=== PATIENT | male | born 1945 | race Caucasian/White ===

== ENCOUNTER → 2016-11-15 | Outpatient (CLI) | payer OTHER, MEDICARE | LOC: BHLMT 11:30 | PROVIDERS: ATTEND Internal Medicine Cardiovascular Disease | DX: I48.0 Paroxysmal atrial fibrillation (principal); I10 Essential (primary) hypertension; E78.5 Hyperlipidemia, unspecified; I71.00 Dissection of unspecified site of aorta; I25.10 Atherosclerotic heart disease of native coronary artery without angina pectoris | CPT/HCPCS: 93005-PO ==

== ENCOUNTER → 2016-11-29 | Outpatient (CLI) | payer OTHER, MEDICARE | LOC: BHLMT 09:00 | PROVIDERS: ATTEND Internal Medicine Cardiovascular Disease | DX: R07.9 Chest pain, unspecified (principal); E78.5 Hyperlipidemia, unspecified | CPT/HCPCS: 78452; 93017; A9500; J2785 ==

== ENCOUNTER → 2016-12-30 | Outpatient (CLI) | payer OTHER, MEDICARE | LOC: BHFA 13:00 | PROVIDERS: ATTEND Internal Medicine Cardiovascular Disease | DX: I71.00 Dissection of unspecified site of aorta (principal); I25.10 Atherosclerotic heart disease of native coronary artery without angina pectoris; I48.0 Paroxysmal atrial fibrillation ==

== ENCOUNTER → 2017-01-11 | Outpatient (CLI) | payer OTHER, MEDICARE | LOC: BHLMT 10:00 | PROVIDERS: ATTEND Internal Medicine Interventional Cardiology | DX: I48.91 Unspecified atrial fibrillation (principal); I25.10 Atherosclerotic heart disease of native coronary artery without angina pectoris | CPT/HCPCS: 93306-PO ==

== ENCOUNTER → 2017-02-24 | Outpatient (CLI) | payer OTHER, MEDICARE | LOC: BHFA 13:30 | PROVIDERS: ATTEND Internal Medicine Cardiovascular Disease | DX: I48.91 Unspecified atrial fibrillation (principal) ==

== ENCOUNTER → 2017-04-17 | Outpatient (CLI) | payer OTHER, MEDICARE ==
[~2017-04-17] MED LIST: IOPAMIDOL (ISOVUE 370) 100 ML BTL IV ONE
== END ==
LOC: FIMAGING 11:19
PROVIDERS: ATTEND Internal Medicine Cardiovascular Disease
DX: I71.2 Thoracic aortic aneurysm, without rupture (principal); I48.91 Unspecified atrial fibrillation; J43.2 Centrilobular emphysema
CPT/HCPCS: 75572; Q9967

== ENCOUNTER 2017-04-20 11:02 | Observation (INO) | payer OTHER, MEDICARE ==
[2017-04-20] MEDS ORDERED: NS 1,000 ML IV ONE (11:13)
--- NOTE | 2017-04-20 11:35 | CPEKG ---
Heart Rate: 64 RR Interval: 938 P-R Interval: 200 QRSD Interval: 86 QT Interval: 440 QTC Interval: 454 P [place]: 30 QRS [place]: -40 T Wave [place]: 20 EKG Severity - BORDERLINE ECG - EKG Impression: SINUS RHYTHM EKG Impression: PROBABLE LEFT ATRIAL ABNORMALITY EKG Impression: LEFT AXIS DEVIATION EKG Impression: BORDERLINE INFERIOR Q WAVES Electronically Signed By: Edmund Beckham 20-Apr-2017 12:46:49
[2017-04-20 11:53] LABS: % IMMATURE GRANULYOCYTES 1.3 % (0.0-1.1); ABSOLUTE IMMATURE GRANULOCYTES 0.12 10^3/uL (0.00-0.10); ADD DIFF? NO; ADD MORPH? NO; ADD SCAN? NO; ATYPICAL LYMPHOCYTE FLAG 0 (0-99); FRAGMENT RBC FLAG 0 (0-99); HEMATOCRIT 46.5 % (40.0-51.0); HEMOGLOBIN 15.6 g/dL (13.7-17.5); LEFT SHIFT FLG 0 (0-99); LIPEMIA HEMOLYSIS FLAG 80 (0-99); MEAN CELL HEMOGLOBIN 32.8 pg (27.9-34.1); MEAN CELL HEMOGLOBIN CONCENTR. 33.5 g/dL (32.4-36.7); MEAN CELL VOLUME 97.9 fL (81.5-99.8); MEAN PLATELET VOLUME 11.5 fL (8.7-11.7); PLATELET CLUMPS FLAG 0 (0-99); PLATELET COUNT 163 10^3/uL (150-400); RED BLOOD CELL COUNT 4.75 10^6/uL (4.40-6.38); RED CELL DISTRIBUTION WIDTH 14.7 % (11.5-15.2)
[2017-04-20 12:04] LABS: ANION GAP 11 mEq/L (8-16); CALCIUM 9.1 mg/dL (8.5-10.4); CARBON DIOXIDE 19 mEq/l (22-31); CHLORIDE 112 mEq/L (97-110); CREATININE 1.7 mg/dL (0.7-1.3); GLOMERULAR FILTRATION RATE 40; GLUCOSE 98 mg/dL (70-100); INR 1.17 (0.83-1.16); MAGNESIUM 2.1 mg/dL (1.6-2.3); POTASSIUM 4.7 mEq/L (3.5-5.2); PROTIME(PATIENT) 14.9 SEC (12.0-15.0); SODIUM 142 mEq/L (134-144)
[2017-04-20] MEDS ORDERED: BUPIVACAINE 0.5% 30 ML SDV ONE (12:18)
[2017-04-20] MEDS ORDERED: HEPARIN/DEXTROSE 25,000 UNIT/500 ML BAG ONE (12:18)
[2017-04-20] MEDS ORDERED: HEPARIN 10,000 UNIT/10 ML MDV ONE (12:18)
[2017-04-20] MEDS ORDERED: LIDOCAINE 1% 300 MG/30 ML SDV ONE (12:18)
--- NOTE | 2017-04-20 13:08 | PDANEPAE ---
ANE History of Present Illness 71 yo male with h/o paroxysmal A-fib and type B aortic aneurysm with dissection. ANE Past Medical History Past Medical History: No URI/fever x2 weeks. 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 PAF. aortic aneurysm with h/o dissection - Pulmonary History Hx Sleep Apnea: No Pulmonary History Comment: positive JERSON screen. on O2 now due to hypoxemia on admission - no known other pulmonary history, but pt has a significant smoking history - Renal History Hx Renal Disorders: Yes Renal History Comment: CKD - Liver History Hx Hepatic Disorders: No - GI History GERD: mild ANE Review of Systems Review of Systems: - Systems Constitutional: Reports: no symptoms Respiratory: Reports: shortness of breath ANE Patient History - Allergies Allergies/Adverse Reactions: No Known Allergies Allergy (Verified 04/14/17 18:59) - Home Medications Home medications: home medication list seen and reviewed Home Medications: Acetaminophen [Tylenol 325mg (*)] 325 mg PO Q4H PRN 04/14/17 [Last Taken Unknown ] Amiodarone HCl [Pacerone (*)] 200 mg PO DAILY 04/14/17 [Last Taken Unknown] Atenolol [Tenormin 25 mg (*)] 12.5 mg PO DAILY 04/14/17 [Last Taken Unknown] Lisinopril [Zestril 20 mg (*)] 20 mg PO BID 04/14/17 [Last Taken Unknown] Omeprazole 20 mg PO DAILY 04/14/17 [Last Taken Unknown] Warfarin Sodium [Warfarin Pharmacy To Dose] 1 each MISC AD 04/14/17 [Last Taken Unknown] amLODIPine BESYLATE [Norvasc 10 mg (*)] 10 mg PO DAILY 04/14/17 [Last Taken Unknown] - NPO status NPO Status: no food or drink >8 hours - Anes Hx Anes Hx: no prior problems - Smoking Hx Smoking Status: Current every day smoker - Family Anes Hx Family Anes Hx: neg - N/A ANE Labs/Vital Signs - Labs Result Diagrams: 04/20/17 11:40 04/20/17 11:40 - Labs - BMP Creatinine: 1.7 - Vital Signs Vital Signs: reviewed preoperatively; see RN documention for details Height: 183 cm Weight: 99.8 kg ANE Physical Exam - Airway Neck exam: FROM Mallampati Score: Class 2 Mouth exam: normal dental/mouth exam - Pulmonary Pulmonary: rhonchi (cleared somewhat with coughing, suspect some atelectasis superimposed on COPD) - Cardiovascular Cardiovascular: regular rate and rhythym - ASA Status ASA Status: IV ANE Anesthesia Plan Anesthesia Plan: general endotracheal anesthesia
--- NOTE | 2017-04-20 13:21 | PDGENHP ---
History & Physical Chief Complaint: Palpitations History of Present Illness: Pt with known COPD, CRI, who has aortopathy, descending aortic aneurysm of 6cm, has palpitation correlating with AF not resovled despite use of Amiodarone. Pt offered Mexilitene vs PVI. Wants to undergo PVI Pertinent Past, Social, Family History: Reviewed and as mentioned above Relevant Physical Exam: Normal physical exam with no significant rales rhonchi or rub. TIKA present Cardiorespiratory Assessment: Good AEBE./ No rales rhinchi rub. S1S2 regular No S3 TIKA noted.
[2017-04-20] MEDS ORDERED: PROPOFOL/EMULSION 500 MG/50 ML BOTTLE IV ONE (13:31)
[2017-04-20] MEDS ORDERED: fentaNYL 100 MCG/2 ML INJ ONE ×2 (13:31→15:55)
[2017-04-20] MEDS ORDERED: ROCURONIUM 50 MG/5 ML VIAL ONE (13:31)
[2017-04-20] MEDS ORDERED: DEXAMETHASONE 4 MG/ML VIAL ONE (13:31)
[2017-04-20] MEDS ORDERED: epHEDrine SULFATE 10 MG/ML SYR ONE ×2 (14:05→14:45)
[2017-04-20] MEDS ORDERED: VASOPRESSIN 20 UNIT/ML VIAL ONE (14:20)
[2017-04-20] MEDS ORDERED: ALBUTEROL 3 ML DEYVIAL ONE (14:58)
[2017-04-20 15:00] LABS: BASE EXCESS -5.8 mEq/L (-2.5-2.5); BICARBONATE 19 mEq/L (22-26); MEASURED OXYGEN SATURATION 95 % (92-95); PCO2 39 mmHg (34-38); PO2 88 mmHg (65-75); TCO2 21 mEq/L (23-27)
[2017-04-20] MEDS ORDERED: IPRATROPIUM/ALBUTEROL 3 ML DEYVIAL ONE (15:00)
[2017-04-20 15:01] LABS: P/F RATIO 88 RATIO
[2017-04-20 15:02] LABS: O2 CONCENTRATIION 100 % (0-100); PRESSURE SUPPORT 12
[2017-04-20] MEDS ORDERED: IOPAMIDOL (ISOVUE-300) 100 ML BTL ONE (15:20)
[2017-04-20] MEDS ORDERED: DESFLURANE 240 ML BOTTLE IH ONE (15:25)
[2017-04-20 16:03] LABS: BICARBONATE 19 mEq/L (22-26); MEASURED OXYGEN SATURATION 98 % (92-95); PCO2 39 mmHg (34-38); PO2 129 mmHg (65-75); TCO2 20 mEq/L (23-27)
[2017-04-20 16:14] LABS: O2 CONCENTRATIION 100 % (0-100); P/F RATIO 129 RATIO
[2017-04-20 16:15] LABS: PATIENT RATE 16; PRESSURE SUPPORT 8
[2017-04-20] MEDS ORDERED: SODIUM BICARBONATE 50 MEQ/50 ML SYR ONE (16:21)
[2017-04-20] MEDS ORDERED: PROTAMINE SULFATE 50 MG/5 ML VIAL IVP ONE (16:27)
[2017-04-20] MEDS ORDERED: ONDANSETRON 4 MG/2 ML VIAL IVP PRN ×2 (16:38→16:39)
[2017-04-20] MEDS ORDERED: OXYCODONE/APAP 5/325 TAB PO PRN (16:38)
[2017-04-20] MEDS ORDERED: ACETAMINOPHEN 325 MG TAB PO PRN ×2 (16:38→16:40)
[2017-04-20] MEDS ORDERED: fentaNYL 100 MCG/2 ML INJ IVP PRN (16:39)
[2017-04-20] MEDS ORDERED: NALOXONE HCL 0.4 MG/ML INJ IVP PRN (16:39)
[2017-04-20] MEDS ORDERED: IPRATROPIUM/ALBUTEROL 3 ML DEYVIAL IH PRN (16:40)
--- NOTE | 2017-04-20 17:03 | POSTANESTH ---
Post Anesthetic Evaluation Cardiovascular Status: Normal, Stable Respiratory Status: Normal, Stable Level of Consciousness/Mental Status: Can Participate in Eval, Mildly Sleepy, Arousable Pain Control: Adequate, Prn Tx Ordered Nausea/Vomiting Control: Adequate, Prn Tx Ordered Complications Possibly Related to Anesthesia: Other, See Comments (Pt had persistent hypotension probably secondary to hypovolemia/sympathetic blockade with GA. Treated with IVF and pressors. BP back to pre-op levels with end of anesthestic. Pt had severe COPD/bronchospasm during case that resolved with Duoned + volatile increase. No further hypoxia during case. No obvious sequelae. )
[2017-04-20 17:48] LABS: IONIZED CALCIUM 0.66 MMOL/L (1.19-1.37)
[2017-04-20 17:56] LABS: ANION GAP 16 mEq/L (8-16); CARBON DIOXIDE 16 mEq/l (22-31); CHLORIDE 118 mEq/L (97-110); CREATININE 1.1 mg/dL (0.7-1.3); GLOMERULAR FILTRATION RATE > 60; GLUCOSE 103 mg/dL (70-100); MAGNESIUM 1.1 mg/dL (1.6-2.3); POTASSIUM 3.1 mEq/L (3.5-5.2); SODIUM 150 mEq/L (134-144)
[2017-04-20 18:06] LABS: CALCIUM 5.5 mg/dL (8.5-10.4)
[2017-04-20] MEDS ORDERED: CALCIUM GLUCONATE 2 GM in D5W 50 ML IV ONE (18:30)
[2017-04-20] MEDS ORDERED: WARFARIN SODIUM 5 MG TAB PO ONE (19:00)
--- NOTE | 2017-04-20 19:41 | PDCONSULT ---
Visual Presentation Manager Note: Erwin Zamora Telehealth Note Demographics Consult Type Acute Stroke First Name Gabriel Last Name Fer Date of 1945 Age: 71 Gender Male Time of initial page (): 04/20/2017 19:25 Time of return call (): 04/20/2017 19:26 Time Ready to Initiate Telemed Consult ( Time): 04/20/2017 19:30 HPI Additional History (Free Text): 71yo man who presents with afib ablation done today. he then had left sided decreased vision. these symptoms started at around he time he awoke from his ablation at around 545PM. He went into the ablation at 130PM. [facility]-- Past Medical History: Diabetes Mellitus, LE cellulitis. Exam NIHSS Time (): 04/20/2017 19:33 LOC 1a: 0 = Alert; keenly responsive LOC 1b: 0 = Answers both questions correctly LOC Commands: 0 = Performs both tasks correctly Best Gaze: 0 = Normal Visual: 2 = Complete hemianopia Facial Palsy 0 = Normal symmetrical movements Motor Arm L: 0 = No drift; limb holds 90 (or 45) degrees for full 10 seconds Motor Arm R: 0 = No drift; limb holds 90 (or 45) degrees for full 10 seconds Motor Leg L: 0 = No drift; leg holds 30-degree position for full 5 seconds Motor Leg R: 0 = No drift; leg holds 30-degree position for full 5 seconds Limb Ataxia 0 = Absent Sensory: 0 = Normal; no sensory loss Best Language: 0 = No aphasia; normal Dysarthria: 0 = Normal Extinction + Inattention: 0 = No abnormality NIHSS: [address]: no bleed Assessment Assessment: Acute Ischemic Stroke, right CT TECH territory Plan Lytic/Intervention: NOT IV or IA candidate tPA Exclusion > 4.5 hr Target Blood Pressure: SBP < 220 Labs Comprehensive metabolic panel, ESR, HgbA1c, Lipid Panel, UDS Imaging MRA Head without, MRA Neck, MRI brain without Diagnostic test echocardiogram with bubble Therapy/Eval PT/OT Medication aspirin 81mg per day VTE Prophylaxis SCD, Heparin 5000 units subcutaneously q 12 hours Other LDL goal less than 70, permissive HTN, telemetry monitoring, I have discussed my recommendations with the referring provider Disposition continue admission
[2017-04-20] MEDS: LISINOPRIL 20 MG TAB PO SCH (20:03)
--- NOTE | 2017-04-20 20:10 | PDHOSCONS ---
Hospitalist Consult Hospitalist Consult: STROKE ALERT CALL FOR THIS PATIENT This patient had been in the EP lab earlier today with a cardiac ablation for atrial fibrillation. He has history of ongoing symptomatic atrial fibrillation unresponsive to antiarrhythmic medications. He also has a history of aortic disease with both ascending and descending aortic aneurysms, and some degree of renal failure. Dr. Kent performed the ablation today and there did not appear to be any complications during the procedure. However as the patient awakened from the procedure and the sedation he noticed a left hemianopia both eyes with a complete loss of vision in that portion of the field. On review of systems there are no other neurologic symptoms and no other visual symptoms, no ocular pain, no headache, no chest pain or palpitations, and no fever symptoms. He has never had symptoms like this before and has never had a stroke. The patient takes anticoagulant home with warfarin, had been on heparin here which was stopped prior to his procedure. He takes an aspirin. He is not diabetic. There has been no recent head injury he is aware of. He has no history of seizure The timing of his symptoms, the due to their presence upon awakening from anesthesia, has to go back at least until the onset of administration of sedation before his procedure. That puts him well past 3 hours and out of times own for being a candidate for tPA therapy. On examination the patient is mildly hypertensive, normal and regular pulse with sinus rhythm on monitor, respirations relaxed normal for temperature The patient is wide awake alert attentive talkative oriented. Her participates normal examination. There is no focal weakness or cranial nerve abnormality. His speech is normal all regards He does demonstrate left hemianopia with both eyes. The patient was taken stat to the CT scanner where a noncontrast scan shows no evidence of bleeding, some nonspecific white matter abnormalities with only real in noted finding He was examined by the [facility] senior product consultant by telemedicine. DIAGNOSIS: ACUTE ISCHEMIC RIGHT OCCIPITAL STROKE IS MOST LIKELY On reviewing his situation he is not a candidate for tPA due to the timing of onset of symptoms which is unknown going back to the time of administration of sedation today. Therefore the plan at this time will be to given aspirin, to go through the standard stroke assessment for finding any treatable or Proventil causes. Also have him seen by therapists and consider his needs at the time of discharge for ongoing therapy or other help. An MRI of the brain will be done to assess for skin cachorro stroke or other possible causes of the syndrome. I have reviewed the case in detail today with Dr. rosalina Morelos and Dr Hernandez of [facility] neurology consulting
[2017-04-20] MEDS: ASPIRIN EC 81 MG TAB PO SCH (20:36)
[2017-04-20] MEDS ORDERED: HEPARIN/DEXTROSE 500 ML IV SCH (22:42)
[2017-04-20] MEDS ORDERED: HEPARIN 10,000 UNIT/10 ML MDV IVP PRN (22:42)
[2017-04-21] MEDS ORDERED: ENOXAPARIN 100 MG/ML SYR SC ONE (01:30)
[2017-04-21] MEDS ORDERED: ENOXAPARIN 100 MG/ML SYR SC SCH ×2 (01:30→15:00)
[2017-04-21 04:09] VITALS: TEMP 98.1
[2017-04-21 05:14] LABS: % IMMATURE GRANULYOCYTES 0.9 % (0.0-1.1); ABSOLUTE IMMATURE GRANULOCYTES 0.12 10^3/uL (0.00-0.10); ADD DIFF? NO; ADD MORPH? NO; ADD SCAN? NO; ATYPICAL LYMPHOCYTE FLAG 0 (0-99); FRAGMENT RBC FLAG 0 (0-99); HEMATOCRIT 41.4 % (40.0-51.0); LEFT SHIFT FLG 0 (0-99); LIPEMIA HEMOLYSIS FLAG 90 (0-99); MEAN CELL HEMOGLOBIN 32.7 pg (27.9-34.1); MEAN CELL HEMOGLOBIN CONCENTR. 33.8 g/dL (32.4-36.7); MEAN CELL VOLUME 96.7 fL (81.5-99.8); MEAN PLATELET VOLUME 11.8 fL (8.7-11.7); PLATELET CLUMPS FLAG 0 (0-99); PLATELET COUNT 147 10^3/uL (150-400); RED BLOOD CELL COUNT 4.28 10^6/uL (4.40-6.38); RED CELL DISTRIBUTION WIDTH 14.7 % (11.5-15.2)
[2017-04-21 05:40] LABS: ANION GAP 8 mEq/L (8-16); CALCIUM 9.2 mg/dL (8.5-10.4); CARBON DIOXIDE 21 mEq/l (22-31); CHLORIDE 107 mEq/L (97-110); CHOLESTEROL 217 mg/dL (140-220); CHOLESTEROL/HDL RATIO 4.93 RATIO (1.00-4.97); CREATININE 1.4 mg/dL (0.7-1.3); GLOMERULAR FILTRATION RATE 50; GLUCOSE 139 mg/dL (70-100); HIGH DENSITY LIPOPROTEIN 44 mg/dL (40-65); LDL/HDL RATIO 3.52 RATIO (1.00-3.64); LOW DENSITY LIPOPROTEIN 155 mg/dL (80-100); NON-HIGH DENSITY LIPOPROTEIN 173 mg/dL (90-129); POTASSIUM 4.3 mEq/L (3.5-5.2); SODIUM 136 mEq/L (134-144); TRIGLYCERIDE 91 mg/dL (40-150); VERY LOW DENSITY LIPOPROTEINS 18 mg/dL (8-25)
[2017-04-21 05:44] LABS: INR 1.26 (0.83-1.16); PROTIME(PATIENT) 15.8 SEC (12.0-15.0)
[2017-04-21 05:51] LABS: CK-MB INTERPRETATION POSITIVE (NEGATIVE)
--- NOTE | 2017-04-21 08:44 | CPEKG ---
Heart Rate: 71 RR Interval: 845 P-R Interval: 200 QRSD Interval: 92 QT Interval: 432 QTC Interval: 470 P [place]: 38 QRS [place]: -26 T Wave [place]: -7 EKG Severity - BORDERLINE ECG - EKG Impression: SINUS RHYTHM EKG Impression: BORDERLINE LEFT AXIS DEVIATION EKG Impression: BORDERLINE INFERIOR Q [place]AV[place] EKG Impression: BORDERLINE T ABNORMALITIES, INFERIOR LEADS Electronically Signed By: Edmund Beckham 21-Apr-2017 10:35:35
[2017-04-21] MEDS ORDERED: PANTOPRAZOLE SODIUM 40 MG TAB PO SCH (09:00)
[2017-04-21] MEDS ORDERED: ATENOLOL 25 MG TAB PO SCH (09:00)
[2017-04-21] MEDS ORDERED: AMIODARONE HCL 200 MG TAB PO SCH (09:00)
[2017-04-21] MEDS: LISINOPRIL 20 MG TAB PO SCH (09:44)
[2017-04-21] MEDS: ASPIRIN EC 81 MG TAB PO SCH (09:44)
[2017-04-21] MEDS ORDERED: LORazepam 2 MG/ML INJ IVP ONE (09:46)
[2017-04-21] MEDS ORDERED: IOPAMIDOL (ISOVUE 370) 100 ML BTL IV ONE (09:51)
[2017-04-21 10:41] VITALS: O2SAT 90
--- NOTE | 2017-04-21 12:00 | ASMTCMCOM ---
CM Note CM Note Notes: Chart reviewed. Discussed patient case in am rounds.Patient s/p ablation with visual changes. He is at high risk for stroke. Munira Zamorano in reviewing patient for potential benefit of inpatient rehabilitation at this point. To have repeat CT of head. Needs to be determined. CM to follow. Date Signed: 04/21/2017 11:59 AM Electronically Signed By:Shefali Gorman RN
[2017-04-21 14:26] VITALS: BP 129/86; PULSE 78; RESP 20
--- NOTE | 2017-04-21 14:55 | GCON ---
[f rep st] CONSULTATION NEUROLOGY CONSULT REFERRING PHYSICIAN: Abran Morelos MD BILLING INFORMATION: Total time of 70 minutes in the ICU floor reviewing previous cardiovascular history, current imaging and laboratory, allergies, along with coordination of care with Hospital Medicine, ICU Medicine and Cardiology. HISTORY OF PRESENT ILLNESS: The patient is a very pleasant 71-year-old gentleman with a fairly complex cardiovascular history including known aortic aneurysm with previous dissection along with atrial fibrillation. He recently restarted warfarin for atrial fibrillation and his upcoming ablation, which he had yesterday. The patient had an ablation for atrial fibrillation yesterday and after waking up from anesthesia, he noticed a left visual field defect. No other neurologic symptoms for a stroke. An inpatient Stroke Alert was called. He was evaluated by Dr. Hernandez from [facility]. Because the timing of the symptoms were upon awakening from anesthesia, the time of onset would have to at least go back until onset of administration of sedation, which put him well past the 3-hour window for being a t-PA candidate. In addition, he had very minor deficit. Head CT did not show any hemorrhage. Certainly, the mechanism was speculated to be cardioembolic from the ablation procedure, which is a very well-known complication with these types of procedures. Due to the high risk of ongoing embolization, Cardiology recommended anticoagulation and heparin was started. He has done well overnight. REVIEW OF SYSTEMS: Ten-point review of system was done, only pertinent to the HPI. For past medical history, social history, family history, home medications and allergies, please see the History and Physical documented by Dr. Morelos. PHYSICAL EXAMINATION: VITAL SIGNS: Blood pressure 128/60, temperature 36.7. GENERAL: In no acute distress. Very pleasant. NEUROLOGIC: The patient has higher mental function. He has no aphasia. He is awake and alert. Cranial nerve exam, he has a small left visual field cut. Otherwise, cranial nerve exam is normal. Motor exam was normal to strength and tone throughout. Sensory exam is normal to light touch in all 4 extremities. IMPRESSION AND PLAN: 1. Atrial fibrillation. 2. Status post ablation, postoperative day 1. 3. Stroke. The patient's clinical history and physical exam are suggestive of a small, cardioembolic stroke in the right occipital lobe causing the small left visual field defect. Discussed at length with Cardiology. I have been informed that he is at very high risk for ongoing embolization based on the procedure. Therefore, 12 weeks of anticoagulation is indicated. Fortunately, based on his exam, the stroke will likely be small in size. We will try to obtain an MRI brain without contrast to visualize further. The patient has severe claustrophobia; therefore, we will give him IV Ativan 2 mg x1 , 20 minutes prior to MRI brain. The patient let me know that he will try - but if he cannot get the MRI due to claustrophobia, he would not like to pursue further. I think that is reasonable, we would then just do a head CT without contrast to ensure there are no other significant changes such as hemorrhage. Angiography of the head and neck will be held off at this point. Based on his exam, there is likely no large vessel occlusion and furthermore, he would not be a candidate for any kind of intervention based on his cardiovascular status now. Please see the past medical and Cardiology notes for details. We will follow up on the above recommendations. Once he is complete with anticoagulation after 12 weeks, then antiplatelet therapy would be indicated for vascular prophylaxis from the stroke standpoint. Outpatient occupational therapy is recommended for small, visual field defect. Thank you for this consultation. /[id number]/MODL MTDD
[2017-04-21] MEDS ORDERED: ENOXAPARIN 80 MG/0.8 ML SYR SC SCH (15:00)
[2017-04-21] MEDS ORDERED: WARFARIN SODIUM 2 MG TAB PO SCH (16:00)
--- NOTE | 2017-04-21 16:48 | EPPROC ---
Electrophysiology Procedure Note: ELECTROPHYSIOLOGIC STUDY AND BALLOON-CATHETER MEDIATED CRYOABLATION FOR ____ ATRIAL FIBRILLATION Procedures performed: 44907-80 EP evaluation with RA/RV/LA pace/record, with arrhythmia induction 66058-77 EP evaluation with RA/RV pace record, insert/reposition catheter, with arrhythmia induction 16574 Atrial fibrillation ablation Intracardiac echocardiogram Transseptal puncture Fluoroscopy INDICATION: Paroxysmal atrial fibrillation PROCEDURE: The patient arrived in the Electrophysiology Laboratory in the fasting state. The right groin, left groin and right infraclavicular area were prepped and draped in the usual sterile fashion. Anesthesiologist administered general anesthesia. All catheters were placed percutaneously using the Seldinger technique and advanced into position under fluoroscopic guidance. One #7 Vietnamese deflectable octapolar electrode catheter was placed in the His-bundle position via the left femoral vein (2mm spacing, IVC electrode for unipolar recordings). This catheter was placed in the coronary sinus after transseptal puncture and later placed in the SVC-R subclavian vein junction to pace the right phrenic nerve during right pulmonary vein ablation. One #8 Vietnamese AcuNaV ultrasound catheter was placed in the left femoral vein and advanced into the right atrium. One #4 Vietnamese sheath was inserted into the left femoral artery via percutaneous technique and used for continuous arterial blood pressure monitoring and intermittent ACT determination. Programmed stimulation was performed from the right atrium, left atrium (CS) and right ventricle. There was no evidence of AV accessory pathway. Intracardiac echo evaluation of the left atrium and pulmonary veins was performed. Baseline ACT was drawn and heparin bolus was administered and heparin drip was started prior to transseptal puncture. ACT was checked every 15 minutes and maintained in the range of 350-400 seconds. One 14Fr short sheath was placed in the right femoral vein. One 8Fr SL1 sheath was advanced into the right atrium via the 14Fr short sheath. Transseptal puncture was performed under intracardiac ultrasound, fluoroscopic and hemodynamic guidance placing the sheath into the left atrium. Lucan RF needle ( C0 curve) was used. The mean left atrial pressure was 4 mmHg. Pulmonary vein angiogram was done using SL1 sheath. CT angiography of pulmonary veins was done previously. There were distinct LSPV, LIPV, RSPV and RIPV. The SL1 sheath was exchanged for a Smart Sparrowtronic Flexcath sheath using an Amplatz stiff guide wire. A 28 mm Cryoballoon catheter with a 20 mm Achieve catheter was placed via the sheath into the left atrium. Intracardiac ultrasound and PV angiograms were used to assist in placing the mapping catheter at the antrum of the pulmonary veins. All pulmonary veins were isolated successfully using cryoballoon ablation using freeze/thaw/freeze cycles at 2-3-minute intervals, with good [id number] of isolation. Coumadin ridge/Ligament of Jermain region was ablated. Pre and post pulmonary vein recordings were measured on the spiral Achieve catheter to ensure complete pulmonary vein isolation. During the right-sided ablation, phrenic nerve pacing was performed to assess the phrenic nerve strength ( manually and with ICE visualization of liver movement during phrenic capture) and the phrenic nerve was intact throughout the right-sided ablation and at the end of the procedure. An esophageal temperature probe (12 electrode, Circa) was placed by the anesthesiologist at the beginning of the procedure. Esophageal temperature was monitored continuously and cryoablation was interrupted if esophageal temperature was <15 C. Cryoapplications 6, total cryoablation time 827 sec. (LSPV had the most significant signal and it dissociated with one lesion. LIPV got one lesion with -52 for 60 sec, RSPV 2 lesions for -38degrees and RIPV one lesions for -48) There was no spontaneous atrial fibrillation. Mapping of all 4 pulmonary veins after isoproterenol infusion showed that all 4 pulmonary veins remained isolated. ICE imaging post ablation was consistent with pre ablation imaging with no changes noted, moreover there was no left atrial/left ventricular thrombus and no pericardial effusion. The catheters were withdrawn. Protamine was given. The sheaths were removed and manual pressure was used for hemostasis. The patient was recovered from anesthesia. There were no complications. The patient was arousable and moving all four extremities at the end of the procedure. Results: Difficult anatomy Successful PVI CONCLUSIONS: * Paroxysmal atrial fibrillation. * Successful pulmonary vein isolation procedure (left and right pulmonary vein antrum) using cryoballoon ablation. * No apparent complications.
--- NOTE | 2017-04-21 17:34 | ECHO ---
[email or web address] [address] Main: [phone] Fax: [email or web address] Echocardiogram Name: IMELDA SINGER MR#: [id number] Study Date: 04/21/2017 Study Time: 09:03 AM Date of : 1945 Age: 71 year(s) Height: 182.9 cm (72 in.) Weight: 99.79 kg (220 lb.) BSA: 2.22 m2 Gender: Male Examination: Echo Indication: Image Quality: Technically Difficult Contrast: Requested by: Abran Morelos BP: 149 mmHg/77 mmHg Heart Rate: Rhythm: Indication: Procedure Staff Floorhand: Joanne Ellis Reading Physician: Elliott Cartagena Requesting Provider: Conclusions: Normal size left ventricle. Normal global systolic LV function. EF is 62 %. No regional wall motion abnormality. Aortic sclerosis is present. Mild aortic valve regurgitation is present. Measurements: Chambers Valvular Assessment AV/MV Valvular Assessment TV/PV Normal Normal Normal Name Value Range Name Value Range Name Value Range Ao Amy (MM): 3.5 cm (2.2 cm-3.7 AV Vmax: 1.60 m/s (1 m/s-1.7 PV Vmax: 1.10 m/s (0.6 m/s-0.9 cm) m/s) m/s) LVDd (2D): 4.5 cm (4.2 cm-5.9 AV maxP mmHg ( - ) PV PGmax: 5 mmHg ( - ) cm) LVOT Vmax: 1.16 m/s (0.7 m/s-1.1 LVDs (2D): 3.0 cm (2.1 cm-4 m/s) cm) MV E Vmax: 0.94 m/s ( - ) LVEF (2D): 62 (>=54 %) MV A Vmax: 0.64 m/s ( - ) MV E/A: 1.47 ( - ) Continued Measurements: Chambers Name Value LADs Lon.3 cm LA Area: 21.9 cm2 LA Volume: 66 ml LA Volume Index: 29.7 ml/m2 Patient: IMELDA SINGER Study Date: 04/21/2017 Page 1 of 2 09:03 AM Additional Vessels Name Value Ao Ascendin.6 cm Findings: Left Ventricle: Normal size left ventricle. Borderline concentric LV hypertrophy. Normal global systolic LV function. EF is 62 %. No regional wall motion abnormality. Right Ventricle: Normal size right ventricle. Normal RV function. Left Atrium: The left atrium is normal in size. Right Atrium: The right atrium is normal in size. Mitral Valve: There is mild thickening of the mitral valve leaflets. There is no mitral valve regurgitation. Aortic Valve: The aortic valve is tri-leaflet. Aortic sclerosis is present. Mild aortic valve regurgitation is present. Tricuspid Valve: The tricuspid valve appears normal. There is no tricuspid valve regurgitation. Pulmonary artery pressure is not obtained due to inadequate TR jet. Pulmonic Valve: Pulmonary valve not well visualized. There is no pulmonic regurgitation seen. Aorta: Known aortic dissection.. IVC: No foreign body in inferior vena cava. Pericardium: No pericardial effusion. There is pericardial fat. (No Signature Object) Patient: IMELDA SINGER Study Date: 04/21/2017 Page 2 of 2 09:03 AM [id number]
[2017-04-22] MEDS ORDERED: WARFARIN SODIUM 3 MG TAB PO SCH (16:00)
== END 2017-04-21 16:15 | disposition home or self-care (01) ==
LOC: FCATH 11:02 → F2N 16:38
PROVIDERS: ADMIT Internal Medicine Cardiovascular Disease; ATTEND Internal Medicine Cardiovascular Disease
PROC: 02K83ZZ Map Conduction Mechanism, Percutaneous Approach (ICD-10-PCS; principal; 2017-04-20)
PROC: B245YZZ Ultrasonography of Left Heart using Other Contrast (ICD-10-PCS; principal; 2017-04-20)
PROC: 025S3ZZ Destruction of Right Pulmonary Vein, Percutaneous Approach (ICD-10-PCS; principal; 2017-04-20)
PROC: B245ZZ4 Ultrasonography of Left Heart, Transesophageal (ICD-10-PCS; principal; 2017-04-20)
PROC: 025T3ZZ Destruction of Left Pulmonary Vein, Percutaneous Approach (ICD-10-PCS; principal; 2017-04-20)
PROC: 02H73MZ Insertion of Cardiac Lead into Left Atrium, Percutaneous Approach (ICD-10-PCS; principal; 2017-04-20)
DX: I97.820 Postprocedural cerebrovascular infarction following cardiac surgery (principal); I48.0 Paroxysmal atrial fibrillation; J44.9 Chronic obstructive pulmonary disease, unspecified; I71.6 Thoracoabdominal aortic aneurysm, without rupture; F17.210 Nicotine dependence, cigarettes, uncomplicated; F40.240 Claustrophobia; E11.22 Type 2 diabetes mellitus with diabetic chronic kidney disease; N18.9 Chronic kidney disease, unspecified; Z79.01 Long term (current) use of anticoagulants
CPT/HCPCS: 70450; 70551; 92523; 93005; 93306; 93613; 93656; 93662; 97161; 97165; C1730; C1731; C1732; C1733; C1759; C1766; C1893; G8978; G8979; G8980; G8987; G8988; G8989; G9165; G9166; J0610; J1100; J1644; J1650; J2060; J2704; J2720; J3010; Q9967; 85520-90

== ENCOUNTER 2017-04-22 16:15 | Emergency (ER) | payer OTHER, MEDICARE ==
[2017-04-22 16:36] VITALS: RESP 16; TEMP 97.5
--- NOTE | 2017-04-22 17:24 | EDPHY ---
H & P Stated Complaint: rt groin hematoma worsened after BM this morning, s/p ablation 3 d ago HPI/ROS: CHIEF COMPLAINT: Ecchymosis and swelling at cath site. HISTORY OF PRESENT ILLNESS: The patient is a 71-year-old male presenting with ecchymosis and swelling to the suprapubic and groin region after an ablation for atrial fibrillation performed two days ago on 04/20. The patient is on Coumadin and Lovenox. He was on Heparin yesterday. The patient is concerned about internal bleeding caused from the procedure. The ecchymosis continues to increase with minimal swelling. He denies abdominal pain or tenderness to the area. No lightheadedness or dizziness. No chest pain. No shortness of breath. REVIEW OF SYSTEMS: A ten point review of systems was performed and is negative with the exception of the items mentioned in the HPI. Past medical history: Atrial fibrillation s/p ablation, abdominal aortic dissection, coronary artery disease, hypertension, TIA. Past surgical history: Ablation, Rotator cuff surgery. Family history: Noncontributory. Social history: , at home. General Appearance: Alert. Vital signs reviewed. BP 144/75. Respiratory: Lungs are clear to auscultation; no wheezes, rales, or rhonchi. Cardiovascular: Regular rate and rhythm; no murmur, rub, or gallop. Gastrointestinal: Ecchymosis and minimally edematous right groin and suprapubic regent. Puncture sites appear uninfected. Pulses: 2+ femoral pulses bilaterally. Some turbulence with doppler of right femoral pulse. Skin: Warm and dry, no rashes on exposed skin, normal color. Back: Nontender to palpation over the thoracolumbar spine. No CVAT. Extremities: No lower extremity edema, no calf tenderness or swelling. Neurological: Alert and oriented. Moving all four extremities easily and equally. Psychiatric: Normal affect. Source: Patient - Personal History Current Tetanus/Diphtheria Vaccine: Unsure Current Tetanus Diphtheria and Acellular Pertussis (TDAP): Unsure - Medical/Surgical History Hx Asthma: No Hx Chronic Respiratory Disease: Yes Hx Diabetes: No Hx Cardiac Disease: Yes Hx Renal Disease: No Hx Cirrhosis: No Hx Alcoholism: No Hx HIV/AIDS: No Hx Splenectomy or Spleen Trauma: No Other PMH: aortic aneurysm dissection-medical tx, rotator cuff surgery, afib/ ablation, CAD, htn, TIA - Social History Smoking Status: Current every day smoker Constitutional: Initial Vital Signs Temperature (C) 36.4 C 04/22/17 16:28 Heart Rate 63 04/22/17 16:28 Respiratory Rate 16 04/22/17 16:28 Blood Pressure 144/75 H 04/22/17 16:28 O2 Sat (%) 93 04/22/17 16:28 O2 Delivery Mode Room Air Allergies/Adverse Reactions: No Known Allergies Allergy (Verified 04/22/17 16:27) Home Medications: Medication Instructions Recorded Acetaminophen [Tylenol 325mg (*)] 325 mg PO Q4H PRN 04/14/17 Atenolol [Tenormin 25 mg (*)] 12.5 mg PO DAILY 04/14/17 Lisinopril [Zestril 20 mg (*)] 20 mg PO BID 04/14/17 Omeprazole 20 mg PO DAILY 04/14/17 amLODIPine BESYLATE [Norvasc 10 mg 10 mg PO DAILY 04/14/17 (*)] Aspirin EC [Aspirin EC 81 mg (*)] 81 mg PO DAILY tab 04/21/17 Enoxaparin [Lovenox 100 MG (*)] 100 mg SC BID #6 syr 04/21/17 Warfarin Sodium [Coumadin 2MG (*)] 2 mg PO MoWeFr@1600 #30 tab 04/21/17 Warfarin Sodium [Coumadin 3MG (*)] 3 mg PO SuTuThSa@1600 #30 tab 04/21/17 Medical Decision Making ED Course/Re-evaluation: The patient presents with ecchymosis and swelling to the groin and suprapubic region after an ablation performed two days ago. Bilateral groin sites were punctured during the procedure. The puncture sites appear to be healing well. There is a significant amount of purple ecchymosis with minimal edema to the right groin. I am able to Doppler his pulses, there is turbulent flow on the right. 6:00 p.m.: Ultrasound ordered for pseudoaneurysm. 6:[address] Hector reported the ultrasound to me as negative for pseudoaneurysm. Patient discharged home with wound care instructions. I spoke with Dr. Beckham, who is aware of patient's evaluation in the ED. Patient is in sinus rhythm. EKG reviewed by me and discussed with Dr. Beckham. has interpreted EKG in [place]. Anticoagulation per Dr. Beckham. Differential Diagnosis: I considered a differential diagnosis that includes but is not limited to hematoma, cellulitis, abscess formation, and pseudoaneurysm. Departure - Departure Disposition: Home, Routine, Self-Care Clinical Impression: Postoperative ecchymosis Condition: Good Instructions: Ecchymosis (ED) Additional Instructions: Continue to monitor the area. If you notice continued bruising and swelling, abdominal pain, or lightheadedness, please return to the emergency department. Follow up with your capping machine operator with further questions and concerns. Referrals: Abran Morelos MD [Medical Doctor] - As per Instructions Report Scribed for: Melissa Love Report Scribed by: Romana Mello Date of Report: 04/22/17 Time of Report: 18:19 Physician Review and Approval Statement: 04/22/17 17:24 Portions of this note were transcribed by the lead medical technologist. I, Dr. Melissa Love, personally performed the history, physical exam, and medical decision- making; and confirmed the accuracy of the information in the transcribed note.
[2017-04-22 18:54] VITALS: BP 140/79; PULSE 52; O2SAT 91
--- NOTE | 2017-04-23 03:53 | CPEKG ---
Heart Rate: 64 RR Interval: 938 P-R Interval: 148 QRSD Interval: 96 QT Interval: 460 QTC Interval: 475 P Warners: 31 QRS Warners: -20 T Wave Warners: 8 EKG Severity - ABNORMAL ECG - EKG Impression: SINUS RHYTHM EKG Impression: PROBABLE LEFT ATRIAL ABNORMALITY EKG Impression: BORDERLINE LEFT AXIS DEVIATION EKG Impression: BORDERLINE INFERIOR Q WAVES EKG Impression: BORDERLINE T WAVE ABNORMALITIES Electronically Signed By: Edmund Beckham 23-Apr-2017 09:44:06
== END 2017-04-22 18:53 | disposition home or self-care (01) ==
DX: I97.610 Postprocedural hemorrhage of a circulatory system organ or structure following a cardiac catheterization (principal); I25.10 Atherosclerotic heart disease of native coronary artery without angina pectoris; I10 Essential (primary) hypertension; F17.200 Nicotine dependence, unspecified, uncomplicated; Z79.01 Long term (current) use of anticoagulants; Z79.82 Long term (current) use of aspirin